=== PATIENT | male | born 1985 | race Caucasian/White ===

== ENCOUNTER 2024-11-25 09:02 | Outpatient (AMB) | payer BC, SELFPAY ==
--- OUTSIDE RECORDS SUMMARY | 2024-11-24 07:45 | XMS_ITS ---
Author Organization [facility] Address [address] [facility] [address] [place] [address] Care Team Providers Care Producer Director Name Role Phone KELLY XIONG Primary Care Provider REASON FOR VISIT New Refill Request Medications Medication SIG (Take, Route, Fr equency, Duration) Notes Start Date End Date Status hydrOXYzine HCl 25 MG 1 tablet as needed every 8 hrs; Duration: 30 days Active Encounters Encounter Location Date Provider Diagnosis [facility] [address] [facility] [address] [place] [address] 11/24/2024 KELLY XIONG Plan Of Treatment Medication Medication Name Sig Start Date Stop Date Notes hydrOXYzine HCl 25 MG 1 tablet as needed every 8 hrs; Duration: 30 days Next Appt Details Provider Name:KELLY XIONG , 10/06/2025 10:00:00 AM, [address] [place] [address], [place], [address], Progress Notes * Pedro BERNALDOB:[birth year] (39 yo M)Acc No.[id number]:11/24/2024 Patient: Pedro BRUSH :1985 A ge:39 Y S ex:Male Address:[place] [address] * Refills Refill hydrOXYzine HCl Tablet, 25 MG, 90 Tablet, 1 tablet as needed, every 8 hrs, 30 days, Refills=5 Subjective: * Chief Complaints: * N ew Refill Request * Medical History: * Surgical History: * Hospitalization/Major Diagno stic Procedure: * Medications: Objective: * Vitals: * Physical Examination: Assessment: Plan: * Treatment: * Procedure Codes: * true * Date: Generated for Rhoda leahy/Maria Elena/Rachel on: 09:44 AM EDT
--- NOTE | 2024-11-25 09:09 | HO.NEPHOV ---
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 He is 39 years of age and is in good health. He was found to have high blood pressure reading in an urgent care center when he presented for left knee complaint. His readings continued to be high even at home after that urgent care visit. He has no history of renal dysfunction, proteinuria, history of childhood UTI, reflux nephropathy, hypokalemia, thyroid dysfunction. He snores at night and feels like having less energy when he wakes up in the morning. He does not take any excessive nonsteroidal anti-inflammatories. He has no history of drug use. He denies palpitation, chest pain, shortness of breath, pedal edema or orthostatic symptoms. He maintains good hydration but does not strict with a low-sodium diet. His half brother and mother has hypertension. There is no history of renal disease in the family. He has occasional headache and heaviness in his eyes. There is no history of any renal calculi or hematuria. His renal functions have been normal. [facility] Medical History (Updated 11/25/24 @ 13:22 by Haider Villavicencio MD) Hypertension Surgical History History of ankle surgery Family History Mother Hypertension Diabetes mellitus Social History Alcohol intake: current Comment: Socially Patient Tobacco Use Status: Never used Tobacco Review of Systems Const All systems reviewed & are unremarkable except as noted in HPI and below Physical Exam Vital Signs: Last Vital Signs BP 150/88 H 11/25/24 09:10 BMI result Body Mass Index 32.8 Const General: comfortable and no acute distress Orientation/consciousness: patient oriented x3 HEENT Head: Yes normocephalic Mouth: Normal oral and palatal mucosa present Eyes EOM: EOMs intact bilaterally Neck Neck: Yes supple Resp Auscultation: clear to auscultation bilaterally Cardio Jugular venous distension: no JVD Rate: regular rate GI Palpation (GI): Soft to palpation Auscultation: normal bowel sounds General: Yes no CVA tenderness Back/Spine/Pelvis Back: no CVA tenderness Skin General skin exam: no rashes or lesions noted Neuro General: patient oriented x3 and moves all extremities Extrem General: Yes no pedal edema Results Reviewed Nephrology Results: Urine Protein, (Neg-Trace) Negative mg/dL Today Urine Creatinine Pending Today Protein/Creatinin Ratio Pending Today Assessment & Plan Assessment & Plan (1) Hypertension: Code(s): I10 - Essential (primary) hypertension Category: Medical Qualifiers: Hypertension type: primary hypertension Qualified Code(s): I10 - Essential (primary) hypertension (2) Sleep apnea: Code(s): G47.30 - Sleep apnea, unspecified Category: Medical Qualifiers: Sleep apnea type: unspecified type Qualified Code(s): G47.30 - Sleep apnea, unspecified Plan Mr. Bernal has a new diagnosis of hypertension. He has family history hypertension. He is not known to have any hypokalemia or renal dysfunction. I ordered a 24 hour ambulatory blood pressure monitor, blood work to check for metanephrines, cortisol, thyroid function, renin and aldosterone. I also ordered Doppler of his renal arteries and a sleep study. He was encouraged to cut back sodium in the diet. I started him on amlodipine 5 mg daily. I shall consider switching him to an ARB in the future based on evolving data. Answered all questions and follow-up appointment was given. Orders: Orders UA and rflx microscopic Today I10 - Essential (primary) hypertension Metanephrines, Plasma Today I10 - Essential (primary) hypertension Cortisol Random Today I10 - Essential (primary) hypertension TSH reflex Free T4 Today I10 - Essential (primary) hypertension AMB 24 HR B/P Monitor PLACEMENT Today I10 - Essential (primary) hypertension Protein Creatinine Ratio, Ur Today I10 - Essential (primary) hypertension Renin Today I10 - Essential (primary) hypertension Aldosterone Today I10 - Essential (primary) hypertension Aldost/Renin Today I10 - Essential (primary) hypertension US renal BI 1 Week I10 - Essential (primary) hypertension US renal doppler 1 Week I10 - Essential (primary) hypertension RT PSG in-lab sleep study Today G47.30 - Sleep apnea, unspecified, I10 - Essential (primary) hypertension Medications: New amlodipine 5 mg PO DAILY 30 tabs 1RF Coding Level of Care Code New Pt Level 4 (02835) Diagnoses Primary hypertension I10 Hypertension type: primary hypertension Sleep apnea, unspecified type G47.30 Sleep apnea type: unspecified type
[2024-11-25 09:10] VITALS: BP 150/88; BMI 32.8
--- OUTSIDE RECORDS SUMMARY | 2024-11-25 09:44 | XMS_ITS | Patient Health Record ---
Author Organization [facility] Address [address] [facility] [address] [place] [address] Care Team Providers Care Examiner Rating Clerk Name Role Phone KELLY XIONG Primary Care Provider Allergies No Known Allergies Results Component Value Reference Range Notes Lipid Panel-[id number] Reviewed date:11/14/2024 10:25:40 AM Interpretation: Performing Lab:[facility], [address] [facility], Phone - [phone], Director - Seema Notes/Report: Cholesterol, Total 225 100-199 mg/dL Triglycerides 60 0-149 mg/dL HDL Cholesterol 74 >39 mg/dL VLDL Cholesterol Roman 10 5-40 mg/dL LDL Chol Calc ([facility]) 141 0-99 mg/dL Comp. Metabolic Panel ([id number] Reviewed date:11/11/2024 09:41:35 AM Interpretation: Performing Lab:[facility], [address] [facility], [place], Phone - [phone], Director - MDTerriey Notes/Report: Glucose 98 70-99 mg/dL BUN 20 6-20 mg/dL Creatinine 1.10 0.76-1.27 mg/dL eGFR 88 >59 mL/min/1.73 BUN/Creatinine Ratio 18 9-20 Sodium 137 134-144 mmol/L Potassium 4.4 3.5-5.2 mmol/L Chloride 99 96-106 mmol/L Carbon Dioxide, Total 23 20-29 mmol/L Calcium 10.0 8.7-10.2 mg/dL Protein, Total 7.2 6.0-8.5 g/dL Albumin 4.7 4.1-5.1 g/dL Globulin, Total 2.5 1.5-4.5 g/dL Bilirubin, Total 0.3 0.0-1.2 mg/dL Alkaline Phosphatase 68 47-123 IU/L AST (SGOT) 32 0-40 IU/L ALT (SGPT) 39 0-44 IU/L Reason For Referral No Information Medications Medication SIG (Take, Route, Frequency, Duration) Notes Start Date End Date Status Escitalopram Oxalate 10 MG TAKE 1 TABLET BY MOUTH EVERY DAY; Duration: 30 Active hydrOXYzine HCl 25 MG 1 tablet as needed every 8 hrs; Duration: 30 days Active Tessalon Perles 100 MG 1 capsule as need ed Orally Three times a day; Duration: 7 days 12/20/2021 Not-Taking Immunizations Vaccine Route Administration Date Status Comme nts COVID Moderna Unknown 03/13/2020 Administered COVID Moderna Unknown 12/25/2020 Administered Social History Tobacco Use: Social History Observation Description Date Details (start date - stop date) Never Smoker NA - NA Tobacco Use/Smoking Question Answer Notes Are you a nonsmoker Alcohol Screen (Audit-C) Question Answer Notes Did you have a drink contain ing alcohol in the past year? Yes How often did you have a dri nk containing alcohol in the past year? Monthly or less (1 point) How many drinks did you have on a typical day when you were drinking in the past year? 1 or 2 drinks (0 point) How often did you have 6 or more drinks on one occasion in the past year? Never (0 point) Points 1 Interpretation Negative Problems Problem Type SNOMED Code ICD Code Onset Dates Problem Status W/U Status Risk Notes Problem Heart murmur (finding) (46067224) Cardiac murmur, unspecified (R01.1) Active confirmed Problem Late effect of fracture of lower extremities (94921644) Unspecified fracture of shaft of right tibia, sequela (S82.201S) Active confirmed Problem Late effect of fracture of lower extremities (92774615) Unspecified fracture of shaft of right fibula, sequela (S82.401S) Active confirmed Problem Adult health examination (834247163) Encounter for general adult medical examination without abnormal findings (Z00.00) Active confirmed Problem Mixed hyperlipidemia (661316814) Mixed hyperlipidemia (E78.2) Active confirmed Problem Generalized anxiety disorder (59423477) AIDAN (generalized anxiety disorder) (F41.1) Active confirmed Vital Signs Heart Rate 88 /min 10/03/2024 Temperature 95.7 degrees Fahrenheit 10/03/2024 Blood pressure diastolic 84 mm Hg 10/03/2024 Oximetry 97 % 10/03/2024 Height 5'6'' in 10/03/2024 Blood pressure systolic 120 mm Hg 10/03/2024 Weight 198.4 lbs 10/03/2024 BMI 32.02 kg/m2 10/03/2024 Encounters Encounter Location Date Provider Diagnosis [address] [place] [address] 12/08/2023 [facility] [address] [facility] [address] [place] [address] 09/29/[address] [place] [address] 11/14/2024 [facility] Mixed hyperlipidemia E78.[address] [place] [address] 05/29/[address] [place] [address] 08/05/[address] [place] [address] 08/06/[address] [place] [address] 08/08/[address] [place] [address] 11/24/[address] [place] [address] 10/03/2024 [facility] Encounter for genera l adult medical examination without abnormal findings Z00.00 ; AIDAN (generalized anxiety disorder) F41.1 and Encounter for screening for cardiovascular disorders Z13.6 Assessments Encounter Date Diagnosis (ICD Code) Assessment Notes Treatment Notes Treatment Clinical Notes Section Notes 10/03/2024 Encounter for general adult medical examination without abnormal findings (ICD-10 - Z00.00) Mr. Bernal is a 38 year old gentleman with anxiety disorder here for annual physical. He mentioned his anxiety is slightly increased for the past few weeks because of change in the job. Plan is as follows: Generalized anxiety disorder. Currently on Lexapro 10 mg daily we discussed his anxiety is not controlled we can add Lexapro 5 mg to his existing dose. Side effects of the medication explained. He will continue on hydroxyzine 25 mg 1 pill and he takes at night. He talked to a therapist through work Eye screening. He sees his social service technician regularly. Dental screening. He sees dentist regularly. Immunizations. He is up-to-date on his COVID, TDAP and influenza vaccinations. Screening blood work before next appointment. General health concerns discussed with patient. 10/03/2024 AIDAN (generalized anxiety disorder) (ICD-10 - F41.1) Mr. Bernal is a 38 year old gentleman with anxiety disorder here for annual physical. He mentioned his anxiety is slightly increased for the past few weeks because of change in the job. Plan is as follows: Generalized anxiety disorder. Currently on Lexapro 10 mg daily we discussed his anxiety is not controlled we can add Lexapro 5 mg to his existing dose. Side effects of the medication explained. He will continue on hydroxyzine 25 mg 1 pill and he takes at night. He talked to a therapist through work Eye screening. He sees his social service technician regularly. Dental screening. He sees dentist regularly. Immunizations. He is up-to-date on his COVID, TDAP and influenza vaccinations. Screening blood work before next appointment. General health concerns discussed with patient. 11/14/2024 Mixed hyperlipidemia (ICD-10 - E78.2) 10/03/2024 Encounter for screening for cardiovascular disorders (ICD-10 - Z13.6) Mr. Bernal is a 38 year old gentleman with anxiety disorder here for annual physical. He mentioned his anxiety is slightly increased for the past few weeks because of change in the job. Plan is as follows: Generalized anxiety disorder. Currently on Lexapro 10 mg daily we discussed his anxiety is not controlled we can add Lexapro 5 mg to his existing dose. Side effects of the medication explained. He will continue on hydroxyzine 25 mg 1 pill and he takes at night. He talked to a therapist through work Eye screening. He sees his social service technician regularly. Dental screening. He sees dentist regularly. Immunizations. He is up-to-date on his COVID, TDAP and influenza vaccinations. Screening blood work before next appointment. General health concerns discussed with patient. Plan Of Treatment Pending Test Test Name Order Date Lipid Panel-[id number] 11/14/2024 Next Appt Details Provider Name:KELLY XIONG , 10/06/2025 10:00:00 AM, [address] [place] [address], [phone], Insurance Providers Payer Name Payer Address Payer Phone Subscriber Number Group Number Insured Name Patient Relationship to Insured Coverage Start Date Coverage End Date [facility] [address] [place] [phone] [id number] 5 Pedro Bernal Self - patient is the insured 5 Medical (General) History Medical History History ICD Code anxiety disorder Surgical History Surgery Date(Month/Year) ankle surgery 06/09/17 triceps surgery, sports injury, [facility] 02/10 023 Hospitalization History Reason Date(Month/Year) broken ankle 06/09/17
--- OUTSIDE RECORDS SUMMARY | 2024-11-25 09:44 | XMS_ITS | Clinical Summary ---
Author Organization [facility] Address [address] [place] [address] Care Team Providers Care Maxillofacial Prosthodontist Name Role Phone Unavailable Primary Care Provider Unavailabl e Social History Tobacco Use Types Packs/Day Years Used Date Smoking Tobacco: Never Assessed Sex and Gender Information Value Date Recorded Sex Assigned at Not on file Legal Sex Male 2:00 PM EDT Gender Identity Not on file Sexual Orientation Not on file Plan of Treatment Health Maintenance Due Date Last Done Comments Hepatitis B Vaccine (1 of 3 - 19+ 3-dose series) 2004 Influenza Vaccine (#1) 2024 Pneumococcal Vaccine: Peds ( 0 to 5 Years) and At-Risk Patients (6 to 49 Years) Aged Out No longer eligible b ased on patient's age to complete this topic
== END 2024-11-25 09:59 | disposition home or self-care (01) ==
LOC: HO.HKA 09:02
PROVIDERS: PCP Hospitalist; Visit Provider Internal Medicine Nephrology
DX: I10 Essential (primary) hypertension (principal); G47.30 Sleep apnea, unspecified
CPT/HCPCS: 99204

== ENCOUNTER 2024-11-25 10:02 | Outpatient (REF) | payer BC, SELFPAY ==
[2024-11-25 11:07] LABS: Appearance Urine Clear; Glucose Urine UA Negative (Negative); PH 6.5 (5.0-9.0); Specific Gravity - Urine >= 1.030 (1.005-1.025)
[2024-11-25 13:35] LABS: Protein/Creatinine Ratio, Ur 0.04 (<0.2); Total Protein Urine Random 9 mg/dL (<12)
[2024-12-01 09:33] LABS: Metanephrine, Free 59 pg/mL (<=57); Normetanephrines, Free 65 pg/mL (<=148); Total Metanephrine, Free 124 pg/mL (<=205)
[2024-12-15 17:38] LABS: Plasma Renin Activity 1.75 ng/mL/h (0.25-5.82)
== END 2024-11-25 10:03 | disposition home or self-care (01) ==
LOC: HO.LAB 10:02
PROVIDERS: Visit Provider Internal Medicine Nephrology
DX: I10 Essential (primary) hypertension (principal)
CPT/HCPCS: 36415; 81003; 82088; 82533; 82570; 83835; 84156; 84244; 84443

== ENCOUNTER → 2024-11-28 09:20 | Outpatient (BNVA) | payer BC, SELFPAY | PROVIDERS: PCP Hospitalist; Visit Provider Internal Medicine Nephrology | DX: I10 Essential (primary) hypertension (principal) | CPT/HCPCS: 93786; 93788 ==

== ENCOUNTER 2024-12-09 09:05 | Outpatient (REF) | payer BC, SELFPAY ==
--- NOTE | ~2024-12-09 | US_ITS ---
EXAMINATION: US RETROPERITONEAL LIMITED (RENAL ONLY) CLINICAL INFORMATION: Essential hypertension. Rule out renal artery stenosis.. COMPARISON: None available. TECHNIQUE: Ultrasound along with color Doppler imaging and spectral analysis was performed of the kidneys. FINDINGS: RIGHT KIDNEY: 12 x 5.4 x 5 cm (SAG x AP x TRV). The kidney is normal in size, contour, and echogenicity. Renal cortical thickness is normal. No calculi or focal parenchymal lesions. No hydronephrosis. LEFT KIDNEY: 12.4 x 6 x 4.6 cm (SAG x AP x TRV). The kidney is normal in size, contour, and echogenicity. Renal cortical thickness is normal. No calculi or focal parenchymal lesions. No hydronephrosis. Vascular: Aortic peak systolic velocity is 196 cm/s. Right renal artery peak systolic velocities are 283, 329 and 200 cm/s. Unable to calculate renal artery to aorta ratio is increased peak systolic velocity in the aorta. Segmental renal artery resistive indices range from 0.4-0.8. The right renal vein is patent. Left: Left renal artery peak systolic velocities are 169, 183 and 145 cm/s. Unable to calculate renal artery to aorta ratio. Segmental renal artery resistive indices range from 0.2-0.8. The left renal vein is patent. Liver echotexture may be slightly increased. US/US renal BI IMPRESSION: Normal-appearing kidneys. Increased peak systolic velocity in the right renal artery suggestive of right renal artery stenosis. Recommend follow-up CTA. Electronically signed by: Kenyatta Phillips MD 12/09/2024 10:30 AM EDT
--- NOTE | ~2024-12-09 | US_ITS ---
EXAMINATION: US RETROPERITONEAL LIMITED (RENAL ONLY) CLINICAL INFORMATION: Essential hypertension. Rule out renal artery stenosis.. COMPARISON: None available. TECHNIQUE: Ultrasound along with color Doppler imaging and spectral analysis was performed of the kidneys. FINDINGS: RIGHT KIDNEY: 12 x 5.4 x 5 cm (SAG x AP x TRV). The kidney is normal in size, contour, and echogenicity. Renal cortical thickness is normal. No calculi or focal parenchymal lesions. No hydronephrosis. LEFT KIDNEY: 12.4 x 6 x 4.6 cm (SAG x AP x TRV). The kidney is normal in size, contour, and echogenicity. Renal cortical thickness is normal. No calculi or focal parenchymal lesions. No hydronephrosis. Vascular: Aortic peak systolic velocity is 196 cm/s. Right renal artery peak systolic velocities are 283, 329 and 200 cm/s. Unable to calculate renal artery to aorta ratio is increased peak systolic velocity in the aorta. Segmental renal artery resistive indices range from 0.4-0.8. The right renal vein is patent. Left: Left renal artery peak systolic velocities are 169, 183 and 145 cm/s. Unable to calculate renal artery to aorta ratio. Segmental renal artery resistive indices range from 0.2-0.8. The left renal vein is patent. Liver echotexture may be slightly increased. US/US renal doppler IMPRESSION: Normal-appearing kidneys. Increased peak systolic velocity in the right renal artery suggestive of right renal artery stenosis. Recommend follow-up CTA. Electronically signed by: Kenyatta Phillips MD 12/09/2024 10:30 AM EDT
--- OUTSIDE RECORDS SUMMARY | 2024-12-09 09:51 | XMS_ITS | Patient Health Record ---
Author Organization [employer] [facility] Address [address] [facility] [address] [place] [address] Care Team Providers Care Silver Solderer Name Role Phone KELLY XIONG Primary Care Provider [phone] Allergies No Known Allergies Results Component Value Reference Range Notes Lipid Panel-[id number] Reviewed date:11/14/2024 10:25:40 AM Interpretation: Performing Lab:[facility], [address] [facility], Phone - [phone], Director - Jodaphney Notes/Report: Cholesterol, Total 225 100-199 mg/dL Triglycerides 60 0-149 mg/dL HDL Cholesterol 74 >39 mg/dL VLDL Cholesterol Roman 10 5-40 mg/dL LDL Chol Calc ([facility]) 141 0-99 mg/dL Comp. Metabolic Panel ([id number] Reviewed date:11/11/2024 09:41:35 AM Interpretation: Performing Lab:[facility], [address] [facility] [place], Phone - [phone], Director - MDTerriey Notes/Report: Glucose 98 70-99 [...] Status Risk Notes Problem Heart murmur (finding) (41642097) Cardiac murmur, unspecified (R01.1) Active confirmed Problem Late effect of fracture of lower extremities (32210084) Unspecified fracture of shaft of right tibia, sequela (S82.201S) Active confirmed Problem Late effect of fracture of lower extremities (70523870) Unspecified fracture of shaft of right fibula, sequela (S82.401S) Active confirmed Problem Adult health examination (877305008) Encounter for general adult medical examination without abnormal findings (Z00.00) Active confirmed Problem Mixed hyperlipidemia (389739825) Mixed hyperlipidemia (E78.2) Active confirmed Problem Generalized anxiety disorder (12475079) AIDAN (generalized anxiety disorder) (F41.1) Active confirmed Vital Signs Heart Rate 88 /min 10/03/2024 Temperature 95.7 degrees Fahrenheit 10/03/2024 Blood pressure diastolic 84 mm Hg 10/03/2024 Oximetry 97 % 10/03/2024 Height 5'6'' in 10/03/2024 Blood pressure systolic 120 mm Hg 10/03/2024 Weight 198.4 lbs 10/03/2024 BMI 32.02 kg/m2 10/03/2024 Encounters Encounter Location Date Provider Diagnosis [address] [place] [address] 10/03/2024 KELLY XIONG Encounter for genera l adult medical examination without abnormal findings Z00.00 ; AIDAN (generalized anxiety disorder) F41.1 and Encounter for screening for cardiovascular disorders Z13.[address] [place] [address] 09/29/[address] [place] [address] 11/14/2024 [facility] Mixed hyperlipidemia E78.[address] [place] [address] 11/30/[address] [place] [address] 05/29/[address] [place] [address] 08/05/[address] [place] [address] 08/06/[address] [place] [address] 08/08/[address] [place] [address] 11/24/2024 KELLY XIONG Assessments Encounter Date Diagnosis (ICD Code) Assessment [...] through work Eye screening. He sees his broadcast meteorologist regularly. Dental screening. He sees dentist regularly. [...] through work Eye screening. He sees his broadcast meteorologist regularly. Dental screening. He sees dentist regularly. [...] through work Eye screening. He sees his broadcast meteorologist regularly. Dental screening. He sees dentist regularly. Immunizations. He is up-to-date on his COVID, TDAP and influenza vaccinations. Screening blood work before next appointment. General health concerns discussed with patient. Plan Of Treatment Pending Test Test Name Order Date Lipid Panel-[id number] 11/14/2024 Next Appt Details Provider Name:KELLY XIONG , 10/06/2025 10:00:00 AM, [address] [place] [address], [phone], Insurance Providers Payer Name Payer Address Payer Phone Subscriber Number Group Number Insured Name Patient Relationship to Insured Coverage Start Date Coverage End Date [facility] [address] [place] [phone] [id number] 5 Pedro Bernal Self - patient is the insured 5 Medical (General) History Medical History History ICD Code anxiety disorder Surgical History Surgery Date(Month/Year) ankle surgery 06/09/17 triceps surgery, sports injury, [facility] 02/10 023 Hospitalization History Reason Date(Month/Year) broken ankle 06/09/17
== END 2024-12-09 09:06 | disposition home or self-care (01) ==
LOC: HO.US 09:05
PROVIDERS: PCP Hospitalist; Visit Provider Internal Medicine Nephrology
DX: I10 Essential (primary) hypertension (principal)
CPT/HCPCS: 76775; 93975

== ENCOUNTER → 2024-12-09 09:10 | Outpatient (BNV) | payer BC, SELFPAY | PROVIDERS: PCP Hospitalist; Visit Provider Radiology Diagnostic Radiology | DX: I10 Essential (primary) hypertension (principal) | CPT/HCPCS: 76775; 93975 ==

== ENCOUNTER 2024-12-21 09:17 | Outpatient (AMB) | payer BC, SELFPAY ==
--- NOTE | 2024-12-21 09:24 | HO.NEPHOV_ITS ---
Vital Signs 12/21/24 09:25 Height 5 ft 6 in Weight 202 lb 8 oz BMI 32.7 BP 130/68 Blood Pressure Location Lt brachial Position Sitting Pulse 80 Pulse Source Pulse Oximeter Pulse Oximetry (%) 96 Oxygen Delivery Method Room Air Intake Visit Reasons: FU-LVM Financial Foundations Associate Required: No Accompanied by: Self / Same As Patient Allergies No Known Allergies Allergy (Verified 12/21/24 09:25) Medication List - Last Reconciled 12/21/24 by Haider Villavicencio MD escitalopram oxalate 10 mg PO DAILY hydroxyzine HCl 25 mg PO Q8H PRN losartan 50 mg PO DAILY nifedipine ER 60 mg PO DAILY HPI Comments Details: 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 He is 39 years of age and is in good health. He was found to have high blood pressure reading in an urgent care center when he presented for left knee complaint. His readings continued to be high even at home after that urgent care visit. He has no history of renal dysfunction, proteinuria, history of childhood UTI, reflux nephropathy, hypokalemia, thyroid dysfunction. He snores at night and feels like having less energy when he wakes up in the morning. He does not take any excessive nonsteroidal anti-inflammatories. He has no history of drug use. He denies palpitation, chest pain, shortness of breath, pedal edema or orthostatic symptoms. He maintains good hydration but does not strict with a low-sodium diet. His half brother and mother has hypertension. There is no history of renal disease in the family. He has occasional headache and heaviness in his eyes. There is no history of any renal calculi or hematuria. His renal functions have been normal. He had a 24 hour BPM which showed uncontrolled BP and was initiated on medications with better control [facility] Medical History (Updated 11/25/24 @ 13:22 by Haider Villavicencio MD) Hypertension Surgical History History of ankle surgery Family History Mother Hypertension Diabetes mellitus Social History Alcohol intake: current Comment: Socially Patient Tobacco Use Status: Never used Tobacco Review of Systems Const All systems reviewed & are unremarkable except as noted in HPI and below Physical Exam Vital Signs: Last Vital Signs Pulse 80 12/21/24 09:25 BP 128/68 12/21/24 09:25 Pulse Ox 96 12/21/24 09:25 Oxygen Delivery Method Room Air 12/21/24 09:25 BMI result Body Mass Index 32.7 Const General: comfortable and no acute distress Orientation/consciousness: patient oriented x3 HEENT Head: Yes normocephalic Mouth: Normal oral and palatal mucosa present Eyes EOM: EOMs intact bilaterally Neck Neck: Yes supple Resp Auscultation: clear to auscultation bilaterally Cardio Jugular venous distension: no JVD Rate: regular rate GI Palpation (GI): Soft to palpation Auscultation: normal bowel sounds General: Yes no CVA tenderness Back/Spine/Pelvis Back: no CVA tenderness Skin General skin exam: no rashes or lesions noted Neuro General: patient oriented x3 and moves all extremities Extrem General: Yes no pedal edema Results Reviewed Nephrology Results: Urine Protein, (Neg-Trace) Negative mg/dL 11/25/24 Urine Creatinine 200.36 mg/dL 11/25/24 Protein/Creatinin Ratio, (<0.2) 0.04 11/25/24 Renal US 12/09/24 Assessment & Plan Assessment & Plan (1) Hypertension: Code(s): I10 - Essential (primary) hypertension Category: Medical Qualifiers: Hypertension type: primary hypertension Qualified Code(s): I10 - Essential (primary) hypertension Plan Mr. Bernal has a new diagnosis of hypertension. He has family history hypertension. He is not known to have any hypokalemia or renal dysfunction. His 24 hour ambulatory blood pressure monitor results were reviewed with him today. Blood work to check for metanephrines, cortisol, thyroid function, renin and aldosterone were normal. Doppler of his renal arteries TRAMAINE. He has been having mild swelling at the end of the day from Nifedipine. I increased his losartan to 75 mg daily which I plan to increase to 100 mg and back off on Nifedipine with time. F/U labs ordered. He was encouraged to cut back sodium in the diet. Answered all questions and follow-up appointment was given Orders: Orders Creatinine 3 Weeks I10 - Essential (primary) hypertension Electrolytes 3 Weeks I10 - Essential (primary) hypertension Blood Urea Nitrogen 3 Weeks I10 - Essential (primary) hypertension Medications: Changed From nifedipine ER 30 mg PO DAILY 30 days 30 tabs 3RF To nifedipine ER 60 mg PO DAILY From losartan 50 mg PO DAILY To losartan 75 mg (1.5 x 50 mg) PO DAILY 45 tabs 3RF 30 days Coding Level of Care Code Est Pt Level 4 (81991) Diagnoses Primary hypertension I10 Hypertension type: primary hypertension
[2024-12-21 09:25] VITALS: BP 130/68; PULSE 80; O2SAT 96; BMI 32.7
--- OUTSIDE RECORDS SUMMARY | 2024-12-21 10:13 | XMS_ITS | Clinical Summary ---
Author Organization [facility] Facility Address [address] [place] [id number] Care Team Providers Care Energy Projects Lead Name Role Phone Unavailable Primary Care Provider [...]
--- OUTSIDE RECORDS SUMMARY | 2024-12-21 10:14 | XMS_ITS | Patient Health Record ---
Author Organization [facility] Address [address] [place] [address] Care Team Providers Care Carport Erector Name Role Phone KELLY XIONG Primary Care Provider Allergies No Known Allergies Results Component Value Reference Range Notes Lipid Panel-[id number] Reviewed date:11/14/2024 10:25:40 AM Interpretation: Performing Lab:[facility], [address] [facility], Phone - [phone], Director - MDJodaphney Notes/Report: Cholesterol, Total 225 100-199 mg/dL Triglycerides 60 0-149 mg/dL HDL Cholesterol 74 >39 mg/dL VLDL Cholesterol Roman 10 5-40 mg/dL LDL Chol Calc ([facility]) 141 0-99 mg/dL Comp. Metabolic Panel (14)-3 [id number] Reviewed date:11/11/2024 09:41:35 AM Interpretation: Performing Lab:[facility], [address] [facility], [place], Phone - [phone], Director - MDTerriey Notes/Report: Glucose 98 70-99 [...] Status Risk Notes Problem Heart murmur (finding) (87275124) Cardiac murmur, unspecified (R01.1) Active confirmed Problem Late effect of fracture of lower extremities (79792968) Unspecified fracture of shaft of right tibia, sequela (S82.201S) Active confirmed Problem Late effect of fracture of lower extremities (92185317) Unspecified fracture of shaft of right fibula, sequela (S82.401S) Active confirmed Problem Adult health examination (932807466) Encounter for general adult medical examination without abnormal findings (Z00.00) Active confirmed Problem Mixed hyperlipidemia (348975707) Mixed hyperlipidemia (E78.2) Active confirmed Problem Generalized anxiety disorder (05367929) AIDAN (generalized anxiety disorder) (F41.1) Active confirmed Vital Signs Heart Rate 88 /min 10/03/2024 Temperature 95.7 degrees Fahrenheit 10/03/2024 Oximetry 97 % 10/03/2024 Blood pressure diastolic 84 mm Hg 10/03/2024 Height 5'6'' in 10/03/2024 Blood pressure systolic 120 mm Hg 10/03/2024 Weight 198.4 lbs 10/03/2024 BMI 32.02 kg/m2 10/03/2024 Encounters Encounter Location Date Provider Diagnosis [address] [place] [address] 10/03/2024 KELLY XIONG Encounter for genera l adult medical examination without abnormal findings Z00.00 ; AIDAN (generalized anxiety disorder) F41.1 and Encounter for screening for cardiovascular disorders Z13.[address] [place] [address] 09/29/[address] [place] [address] 11/14/2024 MENDOZA GUL Mixed hyperlipidemia E78.[address] [place] [address] 11/30/[address] [place] [address] 05/29/[address] [place] [address] 08/05/[address] [place] [address] 08/06/[address] [place] [address] 08/08/[address] [place] [address] 11/24/2024 KELLY XIONG Assessments Encounter Date Diagnosis [...] through work Eye screening. He sees his quality director regularly. Dental screening. He sees dentist regularly. [...] through work Eye screening. He sees his quality director regularly. Dental screening. He sees dentist regularly. [...] through work Eye screening. He sees his quality director regularly. Dental screening. He sees dentist regularly. Immunizations. He is up-to-date on his COVID, TDAP and influenza vaccinations. Screening blood work before next appointment. General health concerns discussed with patient. Plan Of Treatment Pending Test Test Name Order Date Lipid Panel-[id number] 11/14/2024 Next Appt Details Provider Name:KELLY XIONG , 10/06/2025 10:00:00 AM, [address] [place] [address], [phone], Insurance Providers Payer Name Payer Address Payer Phone Subscriber Number Group Number Insured Name Patient Relationship to Insured Coverage Start Date Coverage End Date [facility] [address] [place] [phone] [id number] 5 Pedro Bernal Self - patient is the insured 5 Medical (General) History Medical History History ICD Code anxiety disorder Surgical History Surgery Date(Month/Year) ankle surgery 06/09/17 triceps surgery, sports injury, [facility] 02/10 023 Hospitalization History Reason Date(Month/Year) broken ankle 06/09/17
== END 2024-12-21 09:50 | disposition home or self-care (01) ==
LOC: HO.HKA 09:17
PROVIDERS: PCP Hospitalist; Visit Provider Internal Medicine Nephrology
DX: I10 Essential (primary) hypertension (principal)
CPT/HCPCS: 99214

== ENCOUNTER 2025-01-10 13:18 | Outpatient (REF) | payer BC, SELFPAY ==
[2025-01-10 18:21] LABS: Anion Gap 13 (12-20); Blood Urea Nitrogen 20 mg/dL (9-16); Carbon Dioxide 29 mmol/L (22-29); Chloride 104 mmol/L (96-108); Estimated Glomerular Filt Rate > 60; Potassium 4.6 mmol/L (3.3-5.1); Sodium 141 mmol/L (135-145)
== END 2025-01-10 13:19 | disposition home or self-care (01) ==
LOC: HO.HKASLDS 13:18
PROVIDERS: PCP Hospitalist; Visit Provider Internal Medicine Nephrology
DX: I10 Essential (primary) hypertension (principal)
CPT/HCPCS: 36415; 80051; 82565; 84520

== ENCOUNTER 2025-01-31 16:04 | Outpatient (AMB) | payer BC, SELFPAY ==
[2025-01-31 16:19] VITALS: BP 122/72; PULSE 82; O2SAT 96; BMI 33.1
--- NOTE | 2025-01-31 16:19 | HO.NEPHOV ---
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 He is 39 years of age and is in good health. He was found to have high blood pressure reading in an urgent care center when he presented for left knee complaint. His readings continued to be high even at home after that urgent care visit. He has no history of renal dysfunction, proteinuria, history of childhood UTI, reflux nephropathy, hypokalemia, thyroid dysfunction. He snores at night and feels like having less energy when he wakes up in the morning. He does not take any excessive nonsteroidal anti-inflammatories. He has no history of drug use. He denies palpitation, chest pain, shortness of breath, pedal edema or orthostatic symptoms. He maintains good hydration but does not strict with a low-sodium diet. His half brother and mother has hypertension. There is no history of renal disease in the family. He has occasional headache and heaviness in his eyes. There is no history of any renal calculi or hematuria. His renal functions have been normal. He had a 24 hour BPM which showed uncontrolled BP and was initiated on medications with great BP control [facility] Medical History (Updated 11/25/24 @ 13:22 by Haider Villavicencio MD) Hypertension Surgical History History of ankle surgery Family History Mother Hypertension Diabetes mellitus Social History Alcohol intake: current Comment: Socially Patient Tobacco Use Status: Never used Tobacco Review of Systems Const All systems reviewed & are unremarkable except as noted in HPI and below Physical Exam Vital Signs: Last Vital Signs Pulse 82 01/31/25 16:19 BP 122/72 01/31/25 16:19 Pulse Ox 96 12/23/25 16:19 Oxygen Delivery Method Room Air 12/23/25 16:19 BMI result Body Mass Index 33.1 Const General: comfortable and no acute distress Orientation/consciousness: patient oriented x3 HEENT Head: Yes normocephalic Mouth: Normal oral and palatal mucosa present Eyes EOM: EOMs intact bilaterally Neck Neck: Yes supple Resp Auscultation: clear to auscultation bilaterally Cardio Jugular venous distension: no JVD Rate: regular rate GI Palpation (GI): Soft to palpation Auscultation: normal bowel sounds General: Yes no CVA tenderness Back/Spine/Pelvis Back: no CVA tenderness Skin General skin exam: no rashes or lesions noted Neuro General: patient oriented x3 and moves all extremities Extrem General: Yes no pedal edema Results Reviewed Nephrology Results: Sodium, (135-145) 141 mmol/L 01/10/25 Potassium, (3.3-5.1) 4.6 mmol/L 01/10/25 Chloride, (96-108) 104 mmol/L 01/10/25 Carbon Dioxide, (22-29) 29 mmol/L 01/10/25 BUN, (9-16) 20 mg/dL H 01/10/25 Creatinine, (0.5-1.4) 1.09 mg/dL 01/10/25 Urine Protein, (Neg-Trace) Negative mg/dL 11/25/24 Urine Creatinine 200.36 mg/dL 11/25/24 Protein/Creatinin Ratio, (<0.2) 0.04 11/25/24 Renal US 12/09/24 Assessment & Plan Assessment & Plan (1) Hypertension: Code(s): I10 - Essential (primary) hypertension Category: Medical Qualifiers: Hypertension type: primary hypertension Qualified Code(s): I10 - Essential (primary) hypertension Plan Mr. Bernal has a new diagnosis of hypertension. He has family history hypertension. He is not known to have any hypokalemia or renal dysfunction. His 24 hour ambulatory blood pressure monitor results were reviewed with him today. Blood work to check for metanephrines, cortisol, thyroid function, renin and aldosterone were normal. Doppler of his renal arteries TRAMAINE. He has been having mild swelling at the end of the day from Nifedipine. He can continue losartan 100 mg AM and Nifedipine 30 mg at night . He has been having some edema at the end of the day. I shall consider switching his Nifedipine to Chlorthalidone if edema persists. He needs to cut back sodium in diet. F/U labs ordered. Answered all questions and follow-up appointment was given Orders: Orders Creatinine 4 Months I10 - Essential (primary) hypertension Electrolytes 4 Months I10 - Essential (primary) hypertension Blood Urea Nitrogen 4 Months I10 - Essential (primary) hypertension Medications: Changed From nifedipine ER 60 mg PO DAILY 90 days 90 tabs 3RF To nifedipine ER 90 mg (1.5 x 60 mg) PO DAILY 135 tabs 3RF 90 days From losartan 75 mg (1.5 x 50 mg) PO DAILY 30 days 45 tabs 3RF To losartan 100 mg (2 x 50 mg) PO DAILY 60 tabs 3RF 30 days Coding Level of Care Code Est Pt Level 4 (00094) Diagnoses Primary hypertension I10 Hypertension type: primary hypertension
--- OUTSIDE RECORDS SUMMARY | 2025-01-31 16:54 | XMS_ITS | Patient Health Record ---
Author Organization [facility] Address [address] [place] [address] Care Team Providers Care Manager Wellness Name Role Phone KELLY XIONG Primary Care Provider [phone] Allergies No Known Allergies Results Component Value Reference Range Notes Comp. Metabolic Panel (14-3 Reviewed date:11/11/2024 09:41:35 AM Interpretation: Performing [facility], [facility], Phone - [phone], Director - Seema Notes/Report: Glucose 98 70-99 mg/dL BUN 20 [...] 0-40 IU/L ALT (SGPT) 39 0-44 IU/L Lipid Panel-[id number] Reviewed date:11/14/2024 10:25:40 AM Interpretation: Performing Lab:[facility] [place], [facility] [place], [place], Phone - [phone], Director - Seema Notes/Report: Cholesterol, Total 225 100-199 mg/dL Triglycerides 60 0-149 mg/dL HDL Cholesterol 74 >39 mg/dL VLDL Cholesterol Roman 10 5-40 mg/dL LDL Chol Calc ([facility]) 141 0-99 mg/dL Reason For Referral No Information Medications Medication [...] Status Risk Notes Problem Heart murmur (finding) (62272765) Cardiac murmur, unspecified (R01.1) Active confirmed Problem Late effect of fracture of lower extremities (56793857) Unspecified fracture of shaft of right tibia, sequela (S82.201S) Active confirmed Problem Late effect of fracture of lower extremities (64124739) Unspecified fracture of shaft of right fibula, sequela (S82.401S) Active confirmed Problem Adult health examination (747322004) Encounter for general adult medical examination without abnormal findings (Z00.00) Active confirmed Problem Mixed hyperlipidemia (709293832) Mixed hyperlipidemia (E78.2) Active confirmed Problem Generalized anxiety disorder (27668226) AIDAN (generalized anxiety disorder) (F41.1) Active confirmed Vital Signs Heart Rate 88 /min 10/03/2024 Temperature 95.7 degrees Fahrenheit 10/03/2024 Oximetry 97 % 10/03/2024 Blood pressure diastolic 84 mm Hg 10/03/2024 Height 5'6'' in 10/03/2024 Blood pressure systolic 120 mm Hg 10/03/2024 Weight 198.4 lbs 10/03/2024 BMI 32.02 kg/m2 10/03/2024 Encounters Encounter Location Date Provider Diagnosis [address] [place] [address] 10/03/2024 KELLY XIONG Encounter for genera l adult medical examination without abnormal findings Z00.00 ; AIDAN (generalized anxiety disorder) F41.1 and Encounter for screening for cardiovascular disorders Z13.[address] [place] [address] 09/29/[address] [place] [address] 11/14/2024 MENDOZA GUL Mixed hyperlipidemia E78.[address] [place] [address] 11/30/[address] [place] [address] 05/29/[address] [place] [address] 08/05/[address] [place] [address] 08/06/[address] [place] [address] 08/08/[address] [place] [address] 11/24/2024 KELLY XIONG Assessments Encounter Date Diagnosis [...] through work Eye screening. He sees his r programmer regularly. Dental screening. He sees dentist regularly. [...] through work Eye screening. He sees his r programmer regularly. Dental screening. He sees dentist regularly. [...] through work Eye screening. He sees his r programmer regularly. Dental screening. He sees dentist regularly. Immunizations. He is up-to-date on his COVID, TDAP and influenza vaccinations. Screening blood work before next appointment. General health concerns discussed with patient. Plan Of Treatment Pending Test Test Name Order Date Lipid Panel-[id number] 11/14/2024 Next Appt Details Provider Name:KELLY XIONG , 10/06/2025 10:00:00 AM, [address] [place] [address], [phone], Insurance Providers Payer Name Payer Address Payer Phone Subscriber Number Group Number Insured Name Patient Relationship to Insured Coverage Start Date Coverage End Date [facility] [address] [place] [phone] [id number] 5 Pedro Bernal Self - patient is the insured 5 Medical (General) History Medical History History ICD Code anxiety disorder Surgical History Surgery Date(Month/Year) ankle surgery 06/09/17 triceps surgery, sports injury, [facility] 02/10 023 Hospitalization History Reason Date(Month/Year) broken ankle 06/09/17
--- OUTSIDE RECORDS SUMMARY | 2025-01-31 16:54 | XMS_ITS | Clinical Summary ---
Author Organization [facility] Facility Address [address] [place] [address] Care Team Providers Care Inspector Plumbing Name Role Phone Unavailable Primary Care Provider [...]
== END 2025-01-31 16:43 | disposition home or self-care (01) ==
LOC: HO.HKAS 16:05
PROVIDERS: PCP Hospitalist; Visit Provider Internal Medicine Nephrology
DX: I10 Essential (primary) hypertension (principal)
CPT/HCPCS: 99214